=== PATIENT | male | born 1955 | race Caucasian/White ===

== ENCOUNTER 2024-11-12 06:30 | Day surgery (SDC) | payer OTHER, SELFPAY ==
[2024-11-12] VITALS (15 sets, daily range): BP systolic 118–146; BP diastolic 69–84; BMI 35.2
--- NOTE | 2024-11-12 06:45 | PTCARENOTE ---
Pt arrived today for a cardiac catheterization. Pt speaks only Salvadorean. Pt's daughter Kim is here interpreting for pt.
[2024-11-12 07:14] LABS: Glucose - Point of Care 116 mg/dl (70-99)
[2024-11-12] MEDS: NSS 324 ML IV (07:25)
[2024-11-12] MEDS: LOW STRENGTH ASPIRIN 324 MG PO (07:28)
[2024-11-12] MEDS: NSS 1000 IV (10:15)
[2024-11-12 10:38] LABS: Glucose - Point of Care 122 mg/dl (70-99)
--- NOTE | 2024-11-13 20:14 | ITS.CL.PN ---
Access Services Librarian - Procedure Note
Procedure
Procedure Note:
CARDIAC CATHETERIZATION REPORT
Date of Procedure: 11/12/2024
Referring: Dr. Roger Metz MD
Indication: anginal chest pain, unstable angina
PROCEDURE(S)
1. left heart catheterization
2. coronary angiography
ACCESS: 6F right radial artery (closure: radial band)
CATHETERS
1. 6F JR4
2. 6F JL3.5
MODERATE SEDATION: 20 minutes of moderate sedation was utilized. An independent medical imaging technologist was present to assist with and help manage the patient's level of consciousness and physiologic status.
ULTRASOUND GUIDED VASCULAR ACCESS (right radial artery): Ultrasound was utilized for vascular access. The vessel was visualized under ultrasound and noted to be patent. An image of the vessel was stored permanently in the patient's medical record.
Under direct ultrasound guidance, vascular access was obtained using a modified Seldinger technique and a 6 English sheath was placed.
HEMODYNAMIC DATA
LV 116/5 (EDP 10) mmHg
AO 104/67 (mean 83) mmHg
CORONARY ANGIOGRAPHY
Dominance: right
LM: large, normal
LAD: large vessel giving rise to a moderate caliber D1 and large D2. There is vessel ectasia in the proximal to mid vessel. There is mild ostial narrowing of the D1. There
LCx: large ectatic vessel giving rise to a small OM1, moderate caliber OM2, large OM3, moderate caliber LPL1, and small LPL2.
RCA: large vessel giving rise to a large RPDA and small RPL branch. There are mild luminal irregularities.
RADIATION: dose 307 mGy; DAP 17.4 Gy*cm2; fluoroscopy time 2.5 min
CONCLUSIONS
1. non-obstructive coronary artery disease in a right dominant system
2. normal LV filling pressure and no aortic stenosis on hemodynamic pullback
RECOMMENDATIONS
1. expectant management after cardiac catheterization via right radial approach
2. aggressive primary prevention of coronary artery disease
Copy to: Dr. Roger Metz MD (refuse collector supervisor); Dr. Wendi Polk MD (PCP)
Signed: Flo Alvarado MD, PhD
== END 2024-11-12 12:50 | disposition home or self-care (01) ==
LOC: CATH 06:30
PROVIDERS: ATTENDING PHYSICIAN Student in an Organized Health Care Education/Training Program; FAMILY PHYSICIAN Internal Medicine; OTHER PHYSICIAN Internal Medicine Cardiovascular Disease
DX: I25.110 Atherosclerotic heart disease of native coronary artery with unstable angina pectoris (principal); Z79.84 Long term (current) use of oral hypoglycemic drugs; Z79.899 Other long term (current) drug therapy
CPT/HCPCS: 99152; 76937; 82962; 93458; C1894; Q9967